=== PATIENT | female | born 1975 | race Asian ===

== ENCOUNTER 2017-02-04 05:50 | Day surgery (SDC) | payer OTHER ==
[~2017-02-04] VITALS: Ht 160 cm; Wt 75.3 kg
[2017-02-04] MEDS ORDERED: PROPOFOL 200MG/ 20ML VIAL (DIPRIVAN) IV ONE (07:26)
[2017-02-04] MEDS ORDERED: BUPIVACAINE /EPINEPHRINE/PF 0.5% 30 ML VIAL INJ ONE (07:26)
[2017-02-04] MEDS ORDERED: SEVOFLURANE 15 MIN GAS INH ONE (07:26)
[2017-02-04] MEDS ORDERED: MIDAZOLAM HCL 5 MG/5 ML VIAL IVP ONE (07:26)
[2017-02-04] MEDS ORDERED: KETOROLAC TROMETHAMINE 30 MG VIAL IVP ONE (07:26)
[2017-02-04] MEDS ORDERED: ROCURONIUM BROMIDE 10 MG/ML (ZEMURON) IV ONE (07:26)
[2017-02-04] MEDS ORDERED: NS 1000 ML BAG IV ONE (07:26)
[2017-02-04] MEDS ORDERED: fentaNYL CITRATE/PF 100 MCG/2 ML AMP IVP ONE (07:26)
[2017-02-04] MEDS ORDERED: NS IRRIG SOLN 1000 ML IR ONE (07:26)
[2017-02-04] MEDS ORDERED: DEXAMETHASONE SOD PHOSPHATE 4 MG/ML VIAL IVP ONE (07:26)
[2017-02-04] MEDS ORDERED: LR 1,000 ML IV.SOLN IV ONE (07:26)
[2017-02-04] MEDS ORDERED: LR 1,000 ML IV ONE (08:47)
[2017-02-04] MEDS ORDERED: NALBUPHINE HCL 10 MG/ML AMP IVP PRN (09:00)
[2017-02-04] MEDS ORDERED: ONDANSETRON HCL 4 MG/2 ML VIAL IVP PRN ×3 (09:00→09:15)
[2017-02-04] MEDS ORDERED: ePHEDrine sulfate 50 MG/ML VIAL IVP PRN (09:00)
[2017-02-04] MEDS ORDERED: NALOXONE HCL 0.4 MG/ML AMP (NARCAN) IVP PRN (09:00)
[2017-02-04] MEDS ORDERED: DIPHENHYDRAMINE INJ 50 MG/ML VIAL IVP PRN (09:00)
[2017-02-04] MEDS ORDERED: fentaNYL CITRATE/PF 100 MCG/2 ML AMP IVP PRN (09:00)
[2017-02-04] MEDS ORDERED: OXYCODONE/ACETAMINOPHEN 5-325 TABLET PO PRN ×2 (09:15)
[2017-02-04] MEDS ORDERED: IBUPROFEN 600 MG TABLET PO PRN (09:15)
[2017-02-04] MEDS ORDERED: PROMETHAZINE HCL 25 MG/ML AMP IM PRN ×2 (09:15)
[2017-02-04] MEDS ORDERED: fentaNYL CITRATE/PF 100 MCG/2 ML AMP ONE (09:50)
[2017-02-04 10:33] VITALS: BP_SYST 101
[2017-02-04] MEDS ORDERED: OXYCODONE/ACETAMINOPHEN 5-325 TABLET ONE (12:19)
== END 2017-02-04 12:45 | disposition home or self-care (01) ==
LOC: SMU 05:50 → SDS 05:50
PROVIDERS: ATTEND Obstetrics & Gynecology
DX: N80.1 Endometriosis of ovary (principal); Z87.891 Personal history of nicotine dependence; Z88.8 Allergy status to other drugs, medicaments and biological substances; Z79.899 Other long term (current) drug therapy
CPT/HCPCS: 36415; 58661; 86886; 86900; 86901; 88305; J1100; J1885; J2250; J2704; J3010; J3490; J7030; J7120